=== PATIENT | female | born 1995 | race Caucasian/White ===

== ENCOUNTER 2018-06-07 18:55 | Observation (INO) ==
[2018-06-07 19:26] VITALS: RESP 16
[2018-06-07] MEDS ORDERED: Acetaminophen 325 MG Tablet PO PRN (19:47)
[2018-06-07] MEDS ORDERED: Zolpidem Tartrate 5 MG Tablet PO PRN (19:57)
--- NOTE | 2018-06-07 20:04 | P.HPOB ---
History of Present Illness Service: Luis Enrique SAMANO Primary Care Physician: NOT REQUIRED Chief Complaint: rule out preeclampsia History of Present Illness: 23 yo G1 at 37w0d by L/17w (TIMOTEO 06/28/18) He was seen in outpatient setting today for routine OB visit, she had a mild range blood pressure of 140/70, was asymptomatic, 1+ protein. She was offered outpatient workup for preeclampsia versus observation/workup in the hospital. She elected to present to the hospital. 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 Review of Systems All other systems reviewed negative except as stated in HPI [facility] - Social History I have reviewed the patient's Social History: Yes Medications and Allergies Allergies Allergy/AdvReac Type Severity Reaction Status Date / Time No Known Allergies Uncoded 04/25/11 16:03 Home Medications Medication Instructions Recorded Confirmed Type cetirizine [Zyrtec] 5 mg PO DAILY PRN 06/07/18 06/07/18 History prenat.vits,conrad,qub-[id number] 1 tab PO DAILY 06/07/18 06/07/18 History [ Vitamin] Exam Vital signs: Vital Signs 06/07/18 19:25 06/07/18 19:26 Temperature 98.4 F Pulse Rate 103 H 97 H Respiratory Rate 16 Blood Pressure 131/83 Intake & Output 06/07/18 06/07/18 06/08/18 06:59 18:59 06:59 Weight 90.718 kg Narrative: based on encounter in office today - Constitutional no acute distress - Routine HEENT Exam Head: Present: normocephalic Eye: Present: EOMI - Routine Neck Exam Present: full ROM - Routine Respiratory Exam Present: CTA bilaterally - Routine Cardiovascular Exam Present: RRR - Routine Abdominal Exam Present: soft, normoactive bowel sounds - Routine Exam Comments: deferred exam - Routine Extremities Exam Comments: 1+ edema bilat - Routine Neurological Exam Present: alert, oriented X3 - Additional findings Additional findings: FHTs: 130-140s, Moderate variability, accelerations present, no decelerations Tocometry: Irregular contractions Caprini VTE Risk Assessment Caprini VTE Risk Assessment: Moderate/High Risk (score >= 2) Caprini Risk Assessment Model: Point Value = 1 Point Value = 2 Point Value = 3 Point Value = 5 Age 41-60 Minor surgery BMI > 25 kg/m2 Swollen legs Varicose veins or History of unexplained or recurrent spontaneous Oral contraceptives or hormone replacement Sepsis (< 1 month) Serious lung disease, including pneumonia (< 1 month) Abnormal pulmonary function Acute myocardial infarction Congestive heart failure (< 1 month) History of inflammatory bowel disease Medical patient at bed rest Age 61-74 Arthroscopic surgery Major open surgery (> 45 min) Laparoscopic surgery (> 45 min) Malignancy Confined to bed (> 72 hours) Immobilizing plaster cast Central venous access Age >= 75 History of VTE Family history of VTE Factor V Leiden Prothrombin [id number] Lupus anticoagulant Anticardiolipin antibodies Elevated serum homocysteine Heparin-induced thrombocytopenia Other congenital or acquired thrombophilia Stroke (< 1 month) Elective arthroplasty Hip, pelvis, or leg fracture Acute spinal cord injury (< 1 month) Prophylaxis Regimen: Total Risk Factor Score Risk Level Prophylaxis Regimen 0-1 Low Early ambulation 2 Moderate Order ONE of the following: *Sequential Compression Device (SCD) *Heparin 5000 units SQ BID 3-4 Higher Order ONE of the following medications: *Heparin 5000 units SQ TID *Enoxaparin/Lovenox 40 mg SQ daily (WT < 150 kg, CrCl > 30 mL/min) *Enoxaparin/Lovenox 30 mg SQ daily (WT < 150 kg, CrCl > 10-29 mL/min) *Enoxaparin/Lovenox 30 mg SQ BID (WT < 150 kg, CrCl > 30 mL/min) AND/OR *Sequential Compression Device (SCD) 5 or more Highest Order ONE of the following medications: *Heparin 5000 units SQ TID (Preferred with Epidurals) *Enoxaparin/Lovenox 40 mg SQ daily (WT < 150 kg, CrCl > 30 mL/min) *Enoxaparin/Lovenox 30 mg SQ daily (WT < 150 kg, CrCl > 10-29 mL/min) *Enoxaparin/Lovenox 30 mg SQ BID (WT < 150 kg, CrCl > 30 mL/min) AND *Sequential Compression Device (SCD) Assessment and Plan - Plan 23 yo G1 at 37w0d by L/17w (06/28/18) here for rule out preeclampsia 1. IUP: Cat 1 tracing, reactive NST. - BID NST. - EFW (06/07/) = 3348g (84%), cephalic, 04/19 BPP, posterior placenta - GBS to be collected by nursing. 2. Elevated BP: pt elected for observation in hospital with prec work op, BP on arrival normotensive, will trend BPs, collected HELLP labs, P:C, start 24hr urine protein. Pt aware that if she rules in for prec then would be for IOL. 3. h/o MDD: controlled on no meds 4. thrombocytopenia: Possibly TP, baseline platelets of 134 at 17weeks gestation , no plt count to compare to outside of . Have trended throughout with slow downward trend, most recent 111 (05/31/18), will keep this in mind during her preeclampsia workup, discussed possibility of using prednisone to increase her platelets so she may receive a epidural, she is aware that it would be up to the anesthesiologist discretion. 5. Glucose intol: failed 1hr passed 3hr.
[2018-06-07 20:46] LABS: Baso % (Auto) 0.4 % (0.0-2.0); Eos # (Auto) 0.1 th/mm3 (0.0-0.4); Eos % (Auto) 1.1 % (0.0-4.0); Hemoglobin 11.4 gm/dL (11.6-15.3); Lymph # (Auto) 1.2 th/mm3 (1.0-4.8); Lymph % (Auto) 14.8 % (9.0-44.0); Mean Corpuscular HGB Conc 33.6 % (32.0-36.0); Mean Corpuscular Volume 92.3 fL (80.0-100.0); Mean Platelet Volume 11.7 fL (7.0-11.0); Mono # (Auto) 0.4 th/mm3 (0.0-0.9); Mono % (Auto) 5.3 % (0.0-8.0); Neut # (Auto) 6.2 th/mm3 (1.8-7.7); Neut % (Auto) 78.4 % (16.0-70.0); Platelet Count 104 th/mm3 (150-450); Red Blood Count 3.69 mil/mm3 (4.00-5.30); Red Cell Distribution Width 13.5 % (11.6-17.2); White Blood Count 7.9 th/mm3 (4.0-11.0)
[2018-06-07 21:09] LABS: Albumin 2.5 g/dL (3.4-5.0); Anion Gap 8 meq/L (5-15); Aspartate Aminotransferase 21 U/L (15-37); Blood Urea Nitrogen 6 mg/dL (7-18); Calcium 8.8 mg/dL (8.5-10.1); Chloride 107 meq/L (98-107); Glomerular Filtration Rate Greater Than 89 mL/min (>89); Glucose,Random 78 mg/dL (74-106); Sodium 137 meq/L (136-145)
[2018-06-07 21:10] LABS: Alanine Aminotransferase 21 U/L (10-53); Uric Acid 3.6 mg/dl (2.6-6.0)
[2018-06-07 21:12] LABS: Alkaline Phosphatase 116 U/L (45-117); Total Protein 6.5 g/dL (6.4-8.2)
[2018-06-07 21:19] LABS: Amphetamine Urine With Conf Neg (Neg); Benzodiazepine Urine With Conf Neg (Neg)
[2018-06-07 23:34] LABS: Bacteria,Urine Rare /hpf; Bilirubin,Urine Negative (Negative); Clarity,Urine Clear (Clear); Color,Urine Yellow (Yellw/Straw); Glucose,Urine (UA) Negative (Negative); Leukocyte Esterase,Urine Negative (Negative); Mucus,Urine Few /lpf (Occasional); Nitrite,Urine Negative (Negative); Specific Gravity,Urine 1.019 (1.002-1.035); Squamous Epithelial Cell,Urine 2 /hpf (0-5)
[2018-06-08 07:35] VITALS: TEMP 98.2
--- NOTE | 2018-06-08 07:53 | P.OBGPN ---
S: Patient doing well, no complaints O: VS: Exam: Deferred FHTs: 150s, moderate variability, accelerations present, no decelerations TOCO: Rare contractions A/P 23 yo G1 at 37w1d by L/17w (06/28/18) here for rule out preeclampsia 1. IUP: Cat 1 tracing, reactive NST. - BID NST. - EFW () = 3348g (84%), cephalic, 8/ BPP, posterior placenta - Rapid GBS neg 2. Elevated BP: BPs have been normotensive since arrival, HELLP labs normal except for thrombocytopenia which she had pre-existing. P:C not collected. At this time patient does not have preeclampsia, discussed preeclampsia precautions , patient to return in 1 week in the office, sent her home with her 24-hour urine specimen to finish collection and return tomorrow to the hospital. 3. h/o MDD: controlled on no meds 4. thrombocytopenia: Possibly ITP, baseline platelets of 134 at 17weeks gestation, no plt count to compare to outside of . Have trended throughout with slow downward trend, most recent 111 (05/31/18). Labs on arrival show 104, discussed options and pt desires trial of prednisone. Wrote Rx for 10mg qd and will recheck CBC in 1-2 weeks. 5. Glucose intol: failed 1hr passed 3hr.
[2018-06-08 08:03] VITALS: BP 115/74; PULSE 95
== END 2018-06-08 08:55 | disposition home or self-care (01) ==
LOC: H2E
PROVIDERS: ADMIT Obstetrics & Gynecology; ATTEND Obstetrics & Gynecology
DX: O14.93 Unspecified pre-eclampsia, third trimester; Z3A.37 37 weeks gestation of pregnancy; O99.810 Abnormal glucose complicating pregnancy; O99.13 Other diseases of the blood and blood-forming organs and certain disorders involving the immune mechanism complicating the puerperium; D69.59 Other secondary thrombocytopenia

== ENCOUNTER 2018-06-29 23:21 | Inpatient (IN) ==
[2018-06-30 00:40] LABS: Baso % (Auto) 0.7 % (0.0-2.0); Eos # (Auto) 0.1 th/mm3 (0.0-0.4); Hematocrit 33.4 % (35.0-46.0); Hemoglobin 11.3 gm/dL (11.6-15.3); Lymph # (Auto) 1.8 th/mm3 (1.0-4.8); Lymph % (Auto) 25.4 % (9.0-44.0); Mean Corpuscular HGB Conc 33.8 % (32.0-36.0); Mean Corpuscular Hemoglobin 31.2 pg (27.0-34.0); Mean Corpuscular Volume 92.2 fL (80.0-100.0); Mono # (Auto) 0.6 th/mm3 (0.0-0.9); Mono % (Auto) 8.2 % (0.0-8.0); Neut # (Auto) 4.6 th/mm3 (1.8-7.7); Neut % (Auto) 64.7 % (16.0-70.0); Platelet Count 98 th/mm3 (150-450); Red Blood Count 3.62 mil/mm3 (4.00-5.30); Red Cell Distribution Width 13.2 % (11.6-17.2); White Blood Count 7.1 th/mm3 (4.0-11.0)
[2018-06-30 00:44] LABS: Bacteria,Urine Rare /hpf; Bilirubin,Urine Negative (Negative); Clarity,Urine Clear (Clear); Color,Urine Yellow (Yellw/Straw); Glucose,Urine (UA) Negative (Negative); Leukocyte Esterase,Urine Negative (Negative); Mucus,Urine Few /lpf (Occasional); Nitrite,Urine Negative (Negative); Specific Gravity,Urine 1.025 (1.002-1.035); Squamous Epithelial Cell,Urine 1 /hpf (0-5)
[2018-06-30 00:48] LABS: Amphetamine Urine With Conf Neg (Neg); Benzodiazepine Urine With Conf Neg (Neg)
[2018-06-30 02:10] LABS: Barbiturate Screen,Urine Neg (Neg); Cannabinoid Screen,Urine Neg (Neg); Cocaine Screen,Urine Neg (Neg)
[2018-06-30] MEDS ORDERED: Oxytocin 30 Units/500ml Premix 30 UNITS/500 ML BAG IV.SIG ONE ×2 (02:12→18:20)
[2018-06-30] MEDS ORDERED: fentaNYL Citrate Inj 100 MCG/2 ML Ampul IV.PUSH PRN ×2 (02:12)
[2018-06-30] MEDS ORDERED: Naloxone Inj 0.4 MG/ML Vial IV.PUSH PRN ×2 (02:12→17:00)
[2018-06-30] MEDS ORDERED: Sod Chloride 0.9% Inj 1,000 ML IV.CONT PRN (02:12)
[2018-06-30] MEDS ORDERED: Sodium Chlor 0.9% Inj 500 ML IV.SIG PRN (02:12)
[2018-06-30] MEDS ORDERED: Citric Acid/Sodium Citrate Liq 30 ML UDC PO SCH ×2 (02:15→17:00)
[2018-06-30 02:19] LABS: Amphetamine Screen,Urine Neg (Neg)
[2018-06-30 02:20] LABS: Opiate Screen,Urine Neg (Neg)
[2018-06-30] MEDS ORDERED: Oxytocin 30 Units/500ml Premix 30 UNITS/500 ML BAG IV.SIG PRN ×2 (04:09→23:20)
--- NOTE | 2018-06-30 04:29 | P.OBGPN ---
S: Doing well, comfortable after epidural. O: : 3/70%/-3 FHTs: 130s moderate variability, accelerations present, occasional early and late deceleration, overall reassuring. TOCO: Contractions poorly trace, appear to be every 3-5 minutes. A/P: 23 yo G1 at 40w2d by L/17w (06/28/18) here for IOL per maternal request 1. IUP: Cat 1-2 tracing - EFW 06/07= 3348g (84%), GBS neg, Male fetus. "farrah carroll" GBS NEG. 2. IOL: for maternal request, pt and her partner educated on risk of IOL with unfavorable cervix, s/p PV miso x 1, s/p SROM (1085) clear fluid. Continue Pitocin, anticipate , discussed with patient resuscitation if decelerations become more concerning. 3. h/o MDD: controlled on no meds 4. thrombocytopenia: Possible ITP, baseline platelets of 134 at the beginning of her , most recently 123 (07/04) as an outpt, here 98. - was taking prednisone 10mg daily, d/c on admission, no longer of benefit 5. Gluc intol: failed 1hr 143, passed all 3hr.
[2018-06-30] MEDS ORDERED: Lidocaine 2%/Epinephrine 1:200,000 PF Inj 20 ML Vial ONE (06:35)
[2018-06-30] MEDS ORDERED: fentaNYL 2MCG-Bupiv 0.125% Epi 150 ML EPIDURAL ONE (06:35)
[2018-06-30] MEDS ORDERED: predniSONE 10 MG Tablet PO SCH (09:00)
[2018-06-30] MEDS ORDERED: fentaNYL Citrate Inj 100 MCG/2 ML Ampul EPIDURAL ONE (09:30)
[2018-06-30] MEDS: fentaNYL 2MCG-Bupiv 0.125% Epi 150 ML EPIDURAL PRN ×2 (09:43→14:37)
[2018-06-30] MEDS: Prenatal Vit/Ca/Iron/Folic Acid Tablet PO SCH (09:44)
--- NOTE | 2018-06-30 14:39 | MH ---
cc: Aamir Mcdaniel MD DATE OF ADMISSION: 06/29/2018 CHIEF COMPLAINT: Maternal request for induction. HISTORY OF PRESENT ILLNESS: This patient is a 23-year-old G1, who will be at 40 weeks and 1 day by a sure LMP, consistent with a 17-week ultrasound with estimated due date of 06/28/2018, here for induction of labor. Her has been complicated by history of depression, thrombocytopenia, and glucose intolerance. PAST MEDICAL HISTORY: History of depression and bulimia in 2010. MEDICATIONS: 1. vitamins. 2. Prednisone 10 mg daily for thrombocytopenia. ALLERGIES: NO KNOWN DRUG ALLERGIES. GYNECOLOGIC HISTORY: No history of STDs. LMP: 09/30/2017. OBSTETRIC HISTORY: G1. FAMILY HISTORY: Lupus, otherwise no pertinent positives. PAST SURGICAL HISTORY: None. PHYSICAL EXAMINATION: Based on counting from 06/27/2018. VITAL SIGNS: Weight 206 pounds, blood pressure 128/68. GENERAL: Alert and oriented x3, resting comfortably in the bed. PULMONARY: Lungs are clear to auscultation bilaterally. No wheezes, crackles or rhonchi. CARDIOVASCULAR: Regular rate and rhythm. ABDOMEN: Soft, gravid, nontender. GENITOURINARY: Normal external genitalia. Cervix is 1, thick, high, posterior, and firm. EXTREMITIES: No clubbing, cyanosis or edema. LABORATORY DATA: Please see the patient's records. ASSESSMENT AND PLAN: This patient is a 23-year-old, 1, at 40 weeks and 1 day for induction of labor by maternal request: 1. Intrauterine . Will be placed on monitoring Upon presentation. Will confirm position by ultrasound. GBS negative. Placenta posterior. Male fetus name Javi Mercado. 2. Induction of labor: Discussed options with the patient and suggested her to consider awaiting spontaneous labor, as this increases her chance of a successful delivery, but patient feels strongly about induction. I discussed with her the risks of induction being prolonged, potential increased risk of failure with an unfavorable cervix leading to a , which can increase her morbidity and mortality. She verbalized understanding and wished to proceed with induction. The patient's Petersen score is 1. Will place misoprostol 25 mcg vaginally every 4 hours until favorable. 3. Thrombocytopenia. The patient's baseline platelet count on 01/27/2018 was 134. The patient was started on prednisone 10 mg daily on 06/08/2018 due to a platelet of 104 on 06/07/2018, most recently was 123 on 06/21/2018. The patient is aware that if below 100,000, anesthesia may decline to place an epidural. 4. Glucose intolerance. The patient had failed her 1-hour, but passed all values of her 3-hour MD MARIA ALEJANDRA Bowman/meseret , 08:51 AM , 09:00 AM MTDGamal
[2018-06-30] MEDS ORDERED: Lidocaine 1% Inj 50 ML Vial ONE (15:05)
--- NOTE | 2018-06-30 16:10 | P.OBGPN ---
encounter from 3pm S: Doing well, comfortable after epidural. O: : anterior lip reduced and now complete and +2 to +3, pushed x 1 hour slow but minimal descent FHTs: 160-170s moderate variability, variables with pushing. TOCO: Ctx q2-3 minContractions poorly trace, appear to be every 3-5 minutes. A/P: 23 yo G1 at 40w2d by L/17w (06/28/18) here for IOL per maternal request 1. IUP: Cat 2 tracing - EFW 06/07= 3348g (84%), GBS neg, Male fetus. "farrah carroll" GBS NEG. 2. IOL: complete, nursing to continue pushing as long as fetus tolerates, tachy unexplained, no heavy VB or fever, variability moderate, discussed lack of descent or non reassuring tracing indications for , hopeful for , will return to room in 1 hour or if needed. 3. h/o MDD: controlled on no meds 4. thrombocytopenia: Possible ITP, baseline platelets of 134 at the beginning of her , most recently 123 (07/04) as an outpt, here 98. - was taking prednisone 10mg daily, d/c on admission, no longer of benefit 5. Gluc intol: failed 1hr 143, passed all 3hr.
[2018-06-30] MEDS ORDERED: ceFAZolin 2 GM Premix Inj 2 GM/50 ML PIGGYBACK IV.SIG PRN (16:47)
--- NOTE | 2018-06-30 16:54 | P.OP ---
Surgeon: Aamir Mcdaniel MD Operation and Findings: Preoperative diagnosis: 1. Intrauterine at 40 weeks and 2 days 2. Arrest of descent 3. Persistent category 2 tracing 4. Thrombocytopenia 5. Glucose intolerance Postop diagnosis 1. Same as above status post delivery Procedure 1. Primary low transverse section Surgeon Dr. Aamir Mcdaniel Life Management Teacher: Luis Enrique labor and delivery scrub staff Findings: 1. Viable male at 5:29 PM, Apgars 6, 6, 8. weight 3935 g -Umbilical cord gases: Arterial and venous collected and pending 2. Intact placenta 3 vessel cord at 5:30 PM 3. Normal uterus, bilateral fallopian tubes and ovaries Anesthesia: Epidural Specimen: Placenta to disposal Estimated blood loss: 600 cc Fluid replacement: 700 cc lactated Ringer's and Pitocin Urine output: None able to be recorded due to no recording of presurgery volume in [place]. DVT prophylaxis: Sequential compression devices throughout the case Antibiotics: 2 g Ancef and 500 mg IV azithromycin preoperatively Medications: 0.2 mg IM methargen x1 Counts: correct x2 Time out done: yes Disposition: Stable to PACU then Indications: Patient is a 23-year-old G1 who presented as an induction of labor per her request, she received misoprostol and artificially rupture, she was given Pitocin for augmentation and progressed to complete with reassuring heart tones, she pushed for 2 hours with progressively worsening tachycardia and decreasing variability, however the patient remained afebrile. Despite her pushing efforts she made minimal to no descent, I counseled her for a based on the above. Description of procedure: The patient was taken to the operating room and after spinal anesthesia was performed she was positioned and supine position with arms out in a left lateral tilt, the abdomen was prepped and draped in sterile fashion, a Pfannenstiel incision was made and carried down sharply to the fascia which was nicked on either side of the midline, this was extended bilaterally, the fascia was elevated superiorly and inferiorly and the rectus muscles were sharply dissected off the overlying fascia, the peritoneum was entered digitally and retracted laterally. A bladder flap was developed with Metzenbaum scissors at the lower uterine segment, the hysterotomy was made in the lower uterine segment with a scalpel in a curvilinear fashion, it was extended cephalad-caudad manner, I inserted my hand into the hysterotomy and the head was elevated to the hysterotomy and with fundal pressure was delivered. With gentle downward and upward guidance the anterior and posterior shoulder was delivered, followed by the torso and lower extremities with ease, the had poor tone and did not cry spontaneously, the cord was clamped and cut without allowing delayed cord clamping and handed off to nursing staff. Pitocin was bolused and with uterine massage and cord traction the placenta was delivered, uterus was cleared of clot and debris, the uterus was exteriorized and was somewhat atonic, the patient was given IM methargen x1, and the hysterotomy was closed with 2 layers, first with 0 locking delayed absorbable braided suture, and a second imbricating layer of the same suture. The abdomen and hysterotomy were irrigated, inspected, and found to be hemostatic. The fascia was closed from left to right with 0 running delayed absorbable suture. The subcutaneous tissue was irrigated, inspected, hemostasis was appreciated, the space was closed with running 2-0 delayed absorbable monofilament suture. The skin was closed with 3-0 delayed absorbable monofilament suture in a subcuticular fashion and then a dressing was applied and the patient tolerated procedure well was transferred to PACU.
[2018-06-30] MEDS ORDERED: Morphine Sulfate PF Inj 5 MG/10 ML Ampul ONE (16:56)
[2018-06-30] MEDS ORDERED: Azithromycin Inj 500 MG in Sodium Chlor 0.9% Inj 250 ML IV.SIG ONE (17:00)
--- NOTE | 2018-06-30 17:00 | P.OBGPN ---
Queried PDMP and reviewed report.
[2018-06-30] MEDS ORDERED: Lidocaine 2%/Epinephrine 1:200,000 PF Inj 20 ML Vial INFILTRATN ONE (17:09)
[2018-06-30] MEDS ORDERED: Methylergonovine Inj 0.2 MG/ML Ampul ONE (17:32)
[2018-06-30 18:16] LABS: Cord Arterial Blood HCO3 20.1
[2018-06-30] MEDS ORDERED: Simethicone 80 MG Chew Tablet PO PRN (18:20)
[2018-06-30] MEDS ORDERED: Ketorolac Inj 30 MG/ML (IVP) Vial IV.PUSH ONE (18:20)
[2018-06-30] MEDS ORDERED: Acetaminophen 325 MG Tablet PO PRN (18:20)
[2018-06-30] MEDS ORDERED: Zolpidem Tartrate 5 MG Tablet PO PRN (21:00)
[2018-07-01] MEDS ORDERED: Ketorolac Inj 30 MG/ML (IVP) Vial IV.PUSH SCH
--- NOTE | 2018-07-01 06:28 | P.PNOB ---
Subjective Post op day: 1 Interval history: Doing well, pain controlled, ambulating without difficulty, doan just removed, no voids yet, tolerating fluids without nausea vomiting, hungry for breakfast, vaginal bleeding less than menses. Objective Vital Signs/I&O: Vital Signs 06/30/18 06:30 06/30/18 06:45 06/30/18 06:49 Temperature 98.5 F Pulse Rate 101 H Respiratory Rate 18 Blood Pressure 146/91 H 06/30/18 06:50 06/30/18 06:55 06/30/18 07:10 Temperature Pulse Rate 86 84 85 Respiratory Rate Blood Pressure 116/89 119/76 128/80 06/30/18 07:25 06/30/18 07:40 06/30/18 07:45 Temperature 97.9 F Pulse Rate 79 87 76 Respiratory Rate Blood Pressure 130/78 108/64 107/54 L 06/30/18 08:20 06/30/18 08:40 06/30/18 09:10 Temperature Pulse Rate 71 79 87 Respiratory Rate Blood Pressure 104/58 L 125/75 135/83 06/30/18 09:30 06/30/18 09:35 06/30/18 09:40 Temperature 98.0 F Pulse Rate 66 75 84 Respiratory Rate 17 Blood Pressure 126/75 132/73 06/30/18 09:50 06/30/18 09:55 06/30/18 10:15 Temperature Pulse Rate 74 76 78 Respiratory Rate 18 Blood Pressure 118/60 104/53 L 102/58 L 06/30/18 10:20 06/30/18 10:25 06/30/18 10:30 Temperature Pulse Rate 76 80 Respiratory Rate 17 Blood Pressure 06/30/18 10:45 06/30/18 11:10 06/30/18 11:25 Temperature Pulse Rate 92 H 152 H 84 Respiratory Rate Blood Pressure 109/58 L 146/90 H 119/70 06/30/18 11:30 06/30/18 11:45 06/30/18 12:25 Temperature Pulse Rate 95 H 98 H 91 H Respiratory Rate Blood Pressure 129/76 131/74 113/68 06/30/18 12:40 06/30/18 12:45 06/30/18 12:55 Temperature 98.2 F Pulse Rate 81 90 92 H Respiratory Rate 17 Blood Pressure 127/76 107/60 110/59 L 06/30/18 13:40 06/30/18 13:55 06/30/18 14:00 Temperature Pulse Rate 86 96 H 95 H Respiratory Rate Blood Pressure 125/78 123/75 128/72 06/30/18 14:10 06/30/18 14:20 06/30/18 14:25 Temperature 98.3 F Pulse Rate 82 83 87 Respiratory Rate 16 Blood Pressure 137/76 06/30/18 14:55 06/30/18 15:46 06/30/18 15:50 Temperature Pulse Rate 99 H 124 H 102 H Respiratory Rate Blood Pressure 141/81 H 126/73 06/30/18 16:07 06/30/18 16:10 06/30/18 16:45 Temperature 98.9 F Pulse Rate 106 H 112 H Respiratory Rate Blood Pressure 128/73 94/75 L 06/30/18 18:00 06/30/18 18:15 06/30/18 18:30 Temperature 97.9 F Pulse Rate 84 83 Respiratory Rate 17 20 Blood Pressure 137/72 147/80 H 06/30/18 18:45 06/30/18 19:00 06/30/18 19:45 Temperature 99.5 F Pulse Rate 80 81 80 Respiratory Rate 16 18 20 Blood Pressure 140/80 134/79 136/93 H 07/01/18 00:00 07/01/18 04:00 Temperature 98.3 F 98.5 F Pulse Rate 75 74 Respiratory Rate 18 18 Blood Pressure 134/76 130/78 Intake & Output 06/30/18 06/30/18 07/01/18 06:59 18:59 06:59 Intake Total 1000 / 1000 Balance 1000 / 1000 Weight 93 kg Intake: IV 1000 / 1000 LR 1000 mL Inj 1,000 ML @ 125 1000 / 1000 mls/hr IV.CONT .Q8H [facility] Rx#: [id number] Result Diagrams: 07/01/18 07:29 Objective Remarks: GENERAL: Well-nourished, well-developed patient. CARDIOVASCULAR: Regular rate and rhythm without murmurs, gallops, or rubs. RESPIRATORY: Breath sounds equal bilaterally. No accessory muscle use. ABDOMEN/GI: Abdomen soft, non-tender, bowel sounds present. Dressing Clean, dry and intact. Fundus: Firm, non-tender at umbilicus. GENITOURINARY: Light to moderate bleeding. EXTREMITIES: No cyanosis or edema, non-tender, without signs of DVT. Medications and IVs: Active Medications Acetaminophen (Tylenol) 650 mg PO Q6H PRN PRN Reason: Pain 1 To 2 or fever >100.5 Cetirizine HCl (Zyrtec) 5 mg PO DAILY PRN PRN Reason: CONGESTION Diphenhydramine HCl (Benadryl) 50 mg PO Q6H PRN PRN Reason: MILD TO MODERATE ITCHING Stop: 07/01/18 16:59 Last Admin: 07/01/18 05:21 Dose: 50 mg Diphenhydramine HCl (Benadryl Inj) 25 mg IV.PUSH Q6H PRN PRN Reason: MILD TO MODERATE ITCHING Stop: 07/01/18 16:59 Diphtheria/Pertussis/Tetanus Vacc (Boostrix Vaccine Inj) 0.5 ml IM .ONCE ONE Stop: 07/01/18 16:01 Lactated Ringer's (Lr 1000 Ml Inj) 1,000 mls @ 100 mls/hr IV.CONT .Q10H [facility] Stop: 07/01/18 19:19 Last Admin: 07/01/18 03:15 Dose: 100 mls/hr Oxytocin (Pitocin 30 Units/Ns 500 Ml Premix) 30 units in 500 mls @ 100 mls/hr IV.SIG UNSCH PRN PRN Reason: Heavy bleeding Ibuprofen (Motrin) 800 mg PO Q8H PRN PRN Reason: cramping Last Admin: 07/01/18 05:21 Dose: 800 mg Measles/Mumps/Rubella Vaccine Live (M-M-R Ii Vaccine Inj) 0.5 ml SQ .ONCE ONE Stop: 07/01/18 16:01 Miscellaneous Information (Misc Nursing Information) 1 each OTHER UNSCH PRN PRN Reason: SEE LABEL COMMENTS Stop: 07/01/18 16:59 Miscellaneous Information (Misc Nursing Information) 1 each OTHER UNSCH PRN PRN Reason: SEE LABEL COMMENTS Stop: 07/01/18 16:59 Naloxone HCl (Narcan Inj) 0.4 mg IV.PUSH UNSCH PRN PRN Reason: SEE LABEL COMMENTS Stop: 07/01/18 16:59 Ondansetron HCl (Zofran Odt) 4 mg PO Q4H PRN PRN Reason: NAUSEA Ondansetron HCl (Zofran Inj) 4 mg IV.PUSH Q6H PRN PRN Reason: NAUSEA OR VOMITING Oxycodone/Acetaminophen (Percocet 5/325 Mg) 1 tab PO Q4H PRN PRN Reason: PAIN SCALE 3 TO 5 Oxycodone/Acetaminophen (Percocet 5/325 Mg) 2 tab PO Q4H PRN PRN Reason: PAIN SCALE 6 TO 10 Vit/Calcium/Iron/Folic Ac (Stuartnatal Plus 3) 1 tab PO DAILY [facility] Last Admin: 06/30/18 09:44 Dose: Not Given Simethicone (Mylicon Chew) 80 mg PO QID PRN PRN Reason: FLATULENCE Sodium Chloride (Ns Flush) 2 ml IV.FLUSH BID [facility] Last Admin: 07/01/18 04:36 Dose: Not Given Sodium Chloride (Ns Flush) 2 ml IV.FLUSH PRN PRN PRN Reason: FLUSH AFTER USING IV ACCESS Last Admin: 06/30/18 20:20 Dose: 2 ml Zolpidem Tartrate (Ambien) 5 mg PO HS PRN PRN Reason: INSOMNIA Assessment and Plan - Plan 23-year-old status post primary low transverse at 40 weeks and 2 days due to arrest of descent. 1. Postoperative day #1: Afebrile, vital signs stable, and hemoglobin appropriate, continue routine and postoperative care, anticipate discharge home in the next 48 hours. -Female , in NICU 2. Thrombocytopenia: We will repeat CBC 6 weeks and discuss hematology referral.
[2018-07-01 08:15] LABS: Baso % (Auto) 0.2 % (0.0-2.0); Hematocrit 28.9 % (35.0-46.0); Hemoglobin 9.9 gm/dL (11.6-15.3); Lymph # (Auto) 1.3 th/mm3 (1.0-4.8); Lymph % (Auto) 10.2 % (9.0-44.0); Mean Corpuscular HGB Conc 34.2 % (32.0-36.0); Mean Corpuscular Hemoglobin 31.2 pg (27.0-34.0); Mean Corpuscular Volume 91.2 fL (80.0-100.0); Mean Platelet Volume 11.7 fL (7.0-11.0); Mono # (Auto) 0.8 th/mm3 (0.0-0.9); Mono % (Auto) 6.1 % (0.0-8.0); Neut # (Auto) 10.5 th/mm3 (1.8-7.7); Neut % (Auto) 83.5 % (16.0-70.0); Platelet Count 87 th/mm3 (150-450); Red Blood Count 3.17 mil/mm3 (4.00-5.30); Red Cell Distribution Width 13.5 % (11.6-17.2); White Blood Count 12.5 th/mm3 (4.0-11.0)
[2018-07-01] MEDS: Prenatal Vit/Ca/Iron/Folic Acid Tablet PO SCH (09:57)
[2018-07-01] MEDS ORDERED: Diphtheria/Tetanus/Pertussis Vaccine Inj 0.5 ML Syringe IM ONE (16:00)
[2018-07-01] MEDS ORDERED: Measles/Mumps/Rubella Vaccine Inj 0.5 ML Vial SQ ONE (16:00)
--- NOTE | 2018-07-02 08:12 | P.PNOB ---
Subjective Post op day: 2 Interval history: no acute changes from yesterday, ambulating and voiding now. Objective Vital Signs/I&O: Vital Signs 07/01/18 14:00 07/01/18 19:44 Temperature 97.9 F 97.8 F Pulse Rate 90 81 Respiratory Rate 20 18 Blood Pressure 116/71 117/73 Result Diagrams: 07/01/18 07:29 Objective Remarks: GENERAL: Well-nourished, well-developed patient. CARDIOVASCULAR: Regular rate and rhythm without murmurs, gallops, or rubs. RESPIRATORY: Breath sounds equal bilaterally. No accessory muscle use. ABDOMEN/GI: Abdomen soft, non-tender, bowel sounds present. Incision: Clean, dry and intact. Fundus: Firm, non-tender at umbilicus. GENITOURINARY: Light to moderate bleeding. EXTREMITIES: No cyanosis or edema, non-tender, without signs of DVT. Medications and IVs: Active Medications Acetaminophen (Tylenol) 650 mg PO Q6H PRN PRN Reason: Pain 1 To 2 or fever >100.5 Cetirizine HCl (Zyrtec) 5 mg PO DAILY PRN PRN Reason: CONGESTION Oxytocin (Pitocin 30 Units/Ns 500 Ml Premix) 30 units in 500 mls @ 100 mls/hr IV.SIG UNSCH PRN PRN Reason: Heavy bleeding Ibuprofen (Motrin) 800 mg PO Q8H PRN PRN Reason: cramping Last Admin: 07/01/18 14:15 Dose: 800 mg Ondansetron HCl (Zofran Odt) 4 mg PO Q4H PRN PRN Reason: NAUSEA Ondansetron HCl (Zofran Inj) 4 mg IV.PUSH Q6H PRN PRN Reason: NAUSEA OR VOMITING Oxycodone/Acetaminophen (Percocet 5/325 Mg) 1 tab PO Q4H PRN PRN Reason: PAIN SCALE 3 TO 5 Last Admin: 07/01/18 09:57 Dose: 1 tab Oxycodone/Acetaminophen (Percocet 5/325 Mg) 2 tab PO Q4H PRN PRN Reason: PAIN SCALE 6 TO 10 Last Admin: 07/01/18 18:21 Dose: 2 tab Vit/Calcium/Iron/Folic Ac (Stuartnatal Plus 3) 1 tab PO DAILY [facility] Last Admin: 07/01/18 09:57 Dose: 1 tab Simethicone (Mylicon Chew) 80 mg PO QID PRN PRN Reason: FLATULENCE Sodium Chloride (Ns Flush) 2 ml IV.FLUSH BID [facility] Last Admin: 07/01/18 16:47 Dose: Not Given Sodium Chloride (Ns Flush) 2 ml IV.FLUSH PRN PRN PRN Reason: FLUSH AFTER USING IV ACCESS Last Admin: 06/30/18 20:20 Dose: 2 ml Zolpidem Tartrate (Ambien) 5 mg PO HS PRN PRN Reason: INSOMNIA Assessment and Plan - Plan 23-year-old status post primary low transverse at 40 weeks and 2 days due to arrest of descent. 1. Postoperative day #2: Afebrile, vital signs stable, continue routine and postoperative care, anticipate discharge home tomorrow. -Male , down from NICU, discussed circ did not pay, may desire done as an outpatient 2. Thrombocytopenia: We will repeat CBC 6 weeks and discuss hematology referral.
[2018-07-02] MEDS: Prenatal Vit/Ca/Iron/Folic Acid Tablet PO SCH (09:35)
[2018-07-02] MEDS ORDERED: Influenza (Quadrivalent) Vaccine 0.5 ML Syringe IM ONE (17:00)
[2018-07-03 02:34] VITALS: RESP 16
--- NOTE | 2018-07-03 08:42 | P.PNOB ---
Subjective Post op day: 3 Interval history: POD#3, stable, AVSS, doing well. Objective Vital Signs/I&O: Vital Signs 07/02/18 09:30 07/02/18 21:00 07/03/18 02:00 Temperature 98.4 F 97.9 F 98.0 F Pulse Rate 97 H 91 H 91 H Respiratory Rate 20 18 16 Blood Pressure 144/82 H 133/85 135/80 Result Diagrams: 07/01/18 07:29 Objective Remarks: GENERAL: Well-nourished, well-developed patient. CARDIOVASCULAR: Regular rate and rhythm without murmurs, gallops, or rubs. RESPIRATORY: Breath sounds equal bilaterally. No accessory muscle use. ABDOMEN/GI: Abdomen soft, non-tender, bowel sounds present. Incision: Clean, dry and intact. Fundus: Firm, non-tender at umbilicus. GENITOURINARY: Light to moderate bleeding. EXTREMITIES: No cyanosis or edema, non-tender, without signs of DVT. Medications and IVs: Active Medications Acetaminophen (Tylenol) 650 mg PO Q6H PRN PRN Reason: Pain 1 To 2 or fever >100.5 Cetirizine HCl (Zyrtec) 5 mg PO DAILY PRN PRN Reason: CONGESTION Oxytocin (Pitocin 30 Units/Ns 500 Ml Premix) 30 units in 500 mls @ 100 mls/hr IV.SIG UNSCH PRN PRN Reason: Heavy bleeding Ibuprofen (Motrin) 800 mg PO Q8H PRN PRN Reason: cramping Last Admin: 07/03/18 05:16 Dose: 800 mg Ondansetron HCl (Zofran Odt) 4 mg PO Q4H PRN PRN Reason: NAUSEA Ondansetron HCl (Zofran Inj) 4 mg IV.PUSH Q6H PRN PRN Reason: NAUSEA OR VOMITING Oxycodone/Acetaminophen (Percocet 5/325 Mg) 1 tab PO Q4H PRN PRN Reason: PAIN SCALE 3 TO 5 Last Admin: 07/01/18 09:57 Dose: 1 tab Oxycodone/Acetaminophen (Percocet 5/325 Mg) 2 tab PO Q4H PRN PRN Reason: PAIN SCALE 6 TO 10 Last Admin: 07/03/18 05:15 Dose: 2 tab Vit/Calcium/Iron/Folic Ac (Stuartnatal Plus 3) 1 tab PO DAILY [facility] Last Admin: 07/02/18 09:35 Dose: 1 tab Simethicone (Mylicon Chew) 80 mg PO QID PRN PRN Reason: FLATULENCE Sodium Chloride (Ns Flush) 2 ml IV.FLUSH BID [facility] Last Admin: 07/03/18 05:17 Dose: Not Given Sodium Chloride (Ns Flush) 2 ml IV.FLUSH PRN PRN PRN Reason: FLUSH AFTER USING IV ACCESS Last Admin: 06/30/18 20:20 Dose: 2 ml Zolpidem Tartrate (Ambien) 5 mg PO HS PRN PRN Reason: INSOMNIA Assessment and Plan - Plan 23-year-old status post primary low transverse at 40 weeks and 2 days due to arrest of descent. 1. Postoperative day #2: Afebrile, vital signs stable, continue routine and postoperative care, anticipate discharge home tomorrow. -Male , down from NICU, discussed circ did not pay, may desire done as an outpatient 2. Thrombocytopenia: We will repeat CBC 6 weeks and discuss hematology referral. 07/03/18 POD#3, Cleared for discharge,RTO 1 week. PDMP queried Discharge Planning: routine
[2018-07-03 09:01] VITALS: TEMP 97.9
[2018-07-03 11:27] VITALS: BP 136/83; PULSE 91
== END 2018-07-03 11:50 | disposition home or self-care (01) ==
LOC: H2E 23:21 → H1EA 06-30 19:43
PROVIDERS: ADMIT Obstetrics & Gynecology; ATTEND Obstetrics & Gynecology